=== PATIENT | male | born 1945 | race African-American/Black ===

== ENCOUNTER 2024-05-31 00:37 | Inpatient (IN) | payer OTHER ==
[2024-05-31] MEDS ORDERED: Albuterol 2.5 MG (3 mL) NEB ONE (00:54)
[2024-05-31] MEDS ORDERED: Albuterol 2.5 MG (0.5 mL) NEB ONE (00:54)
[2024-05-31] MEDS ORDERED: cefTRIAXone (ROCEPHIN) 2 GM VIAL ONE (01:06)
[2024-05-31 01:07] LABS: Actual Bicarbonate (HCO3a) 24.7 mEq/L (22-28); Analyzer IN Cardio ER; Base Excess (BEa) -1.5 mEq/L (-2.0 to +3.0); CO2 Tension 47.9 mmHg (35.0-45.0); Calcium, Ionized (arterial) 1.25 mmol/L (1.12-1.30); Carboxyhemoglobin (COHb) 0.1 gm% (0.0-3.0); Hematocrit-ABG 37 % (42.0-52.0); Hemoglobin (Hb) 12.6 g/dL (14.0-18.0); O2 Tension (PaO2), arterial 106.6 mmHg (> 70.0); Potassium - ABG Lab 4.15 mmol/L (3.70-5.30); pH, Arterial 7.331 (7.35-7.45)
[2024-05-31] MEDS ORDERED: Azithromycin 500 MG VIAL ONE (01:07)
[2024-05-31 01:10] LABS: Puncture Site Right Radial artery
[2024-05-31 01:11] LABS: ALV-art Gradient 118.725 mmHg (0-20)
[2024-05-31] MEDS ORDERED: Sodium Chloride 0.9% 100 ML ONE (01:15)
[2024-05-31 01:28] LABS: #Basophils Less than 0.03 10x3/uL (0.0-0.2); %Basophils 0.1 % (0.0-1.0); %Eosinophils 4.1 % (0.0-10.0); %Lymphocytes 4.7 % (21.0-51.0); %Monocytes 3.4 % (0.0-10.0); %Neutrophils 87.6 % (42.0-75.0); Hematocrit 37.2 % (42.0-52.0); Hemoglobin 11.8 g/dL (14.0-18.0); Mean Corpuscular HGB CONC 31.7 g/dL (32.0-36.0); Mean Corpuscular Hemoglobin 28.6 pg (27.0-31.0); Mean Corpuscular Volume 90.3 fL (78.0-98.0); Mean Platelet Volume 10.1 fL (7.4-10.4); Platelet Count 157 10x3/uL (130-400); RBC Distribution Width 14.3 % (11.5-14.5); Red Blood Cell (RBC) Count 4.12 mill/uL (4.70-6.10)
[2024-05-31] MEDS ORDERED: LevoFLOXacin 750 mg/D5W 150 ml Premix Bag ONE (01:31)
[2024-05-31 01:48] LABS: Troponin I Less than 0.010 ng/mL (< 0.028)
[2024-05-31 01:52] LABS: INR-International Normal Ratio 0.9; Prothrombin Time 12.4 sec (12.0-14.7)
[2024-05-31 01:53] LABS: PTT 34.5 sec (22.9-36.1)
[2024-05-31 02:10] LABS: ALT (SGPT) 14 U/L (8-55); AST (SGOT) 27 U/L (5-34); Albumin 3.5 g/dL (3.4-4.8); Alkaline Phosphatase 58 U/L (40-110); Anion Gap 14 mmol/L (10-20); BUN (Urea Nitrogen) 19 mg/dL (8.4-25.7); Bilirubin, Total 0.3 mg/dL (0.2-1.2); Calc. Creatinine Clearance 0 mL/min (70-130); Calcium 9.4 mg/dL (7.8-10.44); Carbon Dioxide 22 mmol/L (23-31); Chloride 108 mmol/L (98-107); Estimated GFR 56; Globulin 3.3 g/dL (2.4-3.5); Glucose 117 mg/dL (83-110); Magnesium 2.6 mg/dL (1.6-2.6); Potassium 4.3 mmol/L (3.5-5.1); Protein, Total 6.8 g/dL (5.8-8.1); Sodium 140 mmol/L (136-145)
[2024-05-31] MEDS ORDERED: Acetaminophen 650 MG Suppository PR PRN (04:06)
[2024-05-31] MEDS ORDERED: Ipratropium/Albuterol 3 ML NEB EZPAP PRN (04:06)
[2024-05-31] MEDS ORDERED: Ondansetron ODT 4 MG TAB PO PRN (04:06)
[2024-05-31] MEDS ORDERED: Ondansetron PF 4 MG/2 ML Vial IVP PRN (04:06)
[2024-05-31 05:57] VITALS: BMI 28.0
[2024-05-31] MEDS ORDERED: Doxycycline 100 MG CAP ONE (09:50)
[2024-05-31] MEDS ORDERED: Pantoprazole DR 40 MG TAB ONE (09:51)
[2024-05-31] MEDS ORDERED: methylPREDNISolone Sod Succ 40 MG VIAL ONE (09:54)
[2024-05-31] MEDS: methylPREDNISolone Sod Succ 40 MG VIAL IVP SCH (10:06)
[2024-05-31] MEDS: Pantoprazole DR 40 MG TAB PO SCH (10:09)
[2024-05-31] MEDS: Doxycycline 100 MG CAP PO SCH (10:09)
[2024-05-31] MEDS ORDERED: Acetaminophen 325 MG TAB ONE (10:12)
[2024-05-31] MEDS: Acetaminophen 325 MG TAB PO SCH (10:13)
[2024-05-31] MEDS ORDERED: Ipratropium/Albuterol 3 ML NEB ONE ×2 (11:00→15:05)
[2024-05-31] MEDS: Ipratropium/Albuterol 3 ML NEB NEB SCH (11:13)
[2024-05-31] MEDS: Mometasone 200 MCG/Formoterol 5 MCG 120 PUFF INHALER INH SCH (12:18)
[2024-06-02] MEDS: DULoxetine 30 MG CAP ONE (23:07)
[2024-06-02] MEDS: Ketorolac Tromethamine 30 MG (1 mL) VIAL ONE (23:23)
[2024-06-02] MEDS: Aspirin 81 mg Enteric Coated Tablet ONE (23:23)
[2024-06-02] MEDS: Ketorolac Tromethamine 30 MG (1 mL) VIAL IVP SCH (23:23)
[2024-06-02] MEDS: Loratadine 10 MG TAB ONE (23:24)
[2024-06-02] MEDS: Isosorbide Mononitrate 30 MG ER.TAB ONE (23:24)
[2024-06-03] MEDS: DULoxetine 30 MG CAP ONE ×2 (04:23→22:15)
[2024-06-03] MEDS: hydrALAZINE 25 MG TAB PO SCH ×2 (12:16→22:15)
[2024-06-03] MEDS: Aspirin 81 mg Enteric Coated Tablet ONE (14:55)
[2024-06-03] MEDS: Isosorbide Mononitrate 30 MG ER.TAB ONE (14:56)
[2024-06-03] MEDS: Loratadine 10 MG TAB ONE (14:56)
[2024-06-03] MEDS: Isosorbide Mononitrate 30 MG ER.TAB PO SCH (14:58)
[2024-06-03 17:26] VITALS: BMI 25.4
[2024-06-03] MEDS: DULoxetine 30 MG CAP PO SCH (22:16)
[2024-06-04 06:47] LABS: #Basophils Less than 0.03 10x3/uL (0.0-0.2); #Eosinophils Less than 0.03 10x3/uL (0.0-0.7); %Basophils 0.2 % (0.0-1.0); %Lymphocytes 8.6 % (21.0-51.0); %Neutrophils 83.7 % (42.0-75.0); Hematocrit 38.3 % (42.0-52.0); Hemoglobin 12.2 g/dL (14.0-18.0); Mean Corpuscular HGB CONC 31.9 g/dL (32.0-36.0); Mean Corpuscular Hemoglobin 28.2 pg (27.0-31.0); Mean Corpuscular Volume 88.7 fL (78.0-98.0); Mean Platelet Volume 10.4 fL (7.4-10.4); Platelet Count 138 10x3/uL (130-400); RBC Distribution Width 14.2 % (11.5-14.5); Red Blood Cell (RBC) Count 4.32 mill/uL (4.70-6.10)
[2024-06-04 06:49] LABS: Anion Gap 13 mmol/L (10-20); BUN (Urea Nitrogen) 22 mg/dL (8.4-25.7); Calc. Creatinine Clearance 64 mL/min (70-130); Calcium 9.6 mg/dL (7.8-10.44); Carbon Dioxide 22 mmol/L (23-31); Chloride 106 mmol/L (98-107); Estimated GFR 72; Glucose 118 mg/dL (83-110); Potassium 4.5 mmol/L (3.5-5.1); Sodium 136 mmol/L (136-145)
[2024-06-04] MEDS: predniSONE 20 MG TAB PO SCH (09:33)
[2024-06-04] MEDS: Aspirin 81 mg Enteric Coated Tablet PO SCH (09:34)
[2024-06-04] MEDS: Loratadine 10 MG TAB PO SCH (09:34)
[2024-06-04] MEDS: Isosorbide Mononitrate 30 MG ER.TAB PO SCH (09:35)
[2024-06-04] MEDS: Furosemide 20 MG TAB PO SCH (09:35)
[2024-06-04] MEDS: Loratadine 10 MG TAB ONE (09:36)
[2024-06-04] MEDS: Isosorbide Mononitrate 30 MG ER.TAB ONE (09:36)
[2024-06-04] MEDS: Aspirin 81 mg Enteric Coated Tablet ONE (09:36)
[2024-06-04] MEDS: Acetaminophen 325 MG TAB PO PRN (10:46)
[2024-06-04] MEDS: Enoxaparin 40 MG (0.4 mL) SYRINGE SC SCH (21:33)
[2024-06-04] MEDS: DULoxetine 30 MG CAP ONE (21:54)
[2024-06-05] MEDS: Aspirin 81 mg Enteric Coated Tablet ONE (10:19)
[2024-06-05] MEDS: Isosorbide Mononitrate 30 MG ER.TAB ONE (10:19)
[2024-06-05] MEDS: Loratadine 10 MG TAB ONE (10:20)
[2024-06-05 11:48] VITALS: TEMP 98.1
[2024-06-05 16:04] VITALS: BP 133/86
== END 2024-06-05 17:28 | DRG 189 ==
LOC: ERS 00:37 → ERHOLD 04:13 → EEVIPCON 04:13 → IMCU/EMU 16:02 → 2NO 06-02 18:27
PROVIDERS: ADMIT Student in an Organized Health Care Education/Training Program; ATTEND Internal Medicine
DX: J96.01 Acute respiratory failure with hypoxia (principal); J44.1 Chronic obstructive pulmonary disease with (acute) exacerbation; J45.902 Unspecified asthma with status asthmaticus; I77.810 Thoracic aortic ectasia; M19.90 Unspecified osteoarthritis, unspecified site; I10 Essential (primary) hypertension; Z88.8 Allergy status to other drugs, medicaments and biological substances; Z88.0 Allergy status to penicillin
CPT/HCPCS: 36415; 36600; 71045; 80048; 80053; 82805; 83605; 83735; 83880; 84484; 85025; 85610; 85730; 87040; 87428; 93005; 94640; 96365; J0456; J0696; J1650; J1956; J2919; J7512; J7611; J7620